=== PATIENT | male | born 1955 | race Caucasian/White ===

== ENCOUNTER 2019-11-17 12:07 | Inpatient (IN) | payer MEDICAID ==
[~2019-11-17] VITALS: Ht 193 cm; Wt 89.0 kg
[2019-11-17] MEDS ORDERED: SODIUM CHLORIDE 0.9% 1000ML BAG (SEPSIS BOLUS) IV ONE (12:45)
[2019-11-17 13:12] LABS: BG BASE EXCESS -6.3 mmol/L (-2.0-2.0); BG CARBOXYHEMOGLOBIN 0.3 % (0.5-1.5); BG DEOXYHEMOGLOBIN 0.7 % (0.0-5.0); BG FRACTION INSPIRED OXYGEN 100; BG HCO3 ACT 16.7 mmol/L (22.0-26.0); BG METHEMOGLOBIN 0.3 % (0.0-1.5); BG OXYGEN SATURATION 99.3 % (92.0-98.5); BG OXYHEMOGLOBIN 98.7 % (94.0-97.0); BG PCO2 25.2 mmHg (35.0-45.0); BG PO2 240.5 mmHg (75.0-100.0); BG SAMPLE SITE RIGHT RADIAL; BG TOTAL HEMOGLOBIN 9.5 g/dL (12.0-18.0); BG VENT MODE MASK - NRB
[2019-11-17 13:29] LABS: BASOPHILS % 0.6 % (0.0-2.0); EOSINOPHILS % 0.8 % (0.0-5.0); HEMATOCRIT. 31.9 % (42.0-52.0); HEMOGLOBIN. 10.3 g/dL (14.0-18.0); LYMPHOCYTES % 20.2 % (20.0-50.0); MEAN CORPUSCULAR HEMOGLOBIN 26.6 pg (28.0-32.0); MEAN CORPUSCULAR VOLUME 82.7 fL (80.0-94.0); MEAN PLATELET VOLUME 8.5 fl (7.4-10.4); MONOCYTES % 10.4 % (2.0-8.0); PLATELET 323 x1000/uL (130-400); RED BLOOD CELL COUNT 3.85 mill/uL (4.7-6.1); RED CELL DISTRIBUTION WIDTH 20.1 % (11.6-14.6)
[2019-11-17] MEDS ORDERED: ACETAMINOPHEN 325MG TABLET PO STA (13:31)
[2019-11-17 13:36] LABS: CHLORIDE 105 mEq/L (98-107); INR 1.4; PROTHROMBIN TIME 14.6 sec (9.6-11.0)
[2019-11-17] MEDS ORDERED: PIPERACILLIN/TAZ 3.375G PREMIX 50 ML IV ONE (13:45)
[2019-11-17] MEDS ORDERED: AZITHROMYCIN 500 MG in DEXT 5% WATER 250 ML IV ONE (13:45)
[2019-11-17] MEDS ORDERED: ENOXAPARIN 40MG/0.4ML SYR SUBCUT SCH (14:45)
[2019-11-17] MEDS ORDERED: CLONIDINE 0.1MG TABLET PO PRN (14:45)
[2019-11-17] MEDS ORDERED: IPRATROPIUM/ALBUTEROL 0.5-3(2.5)MG/3ML NEB HHN PRN (14:45)
[2019-11-17] MEDS ORDERED: AZITHROMYCIN 500 MG in DEXT 5% WATER 250 ML IV SCH (14:45)
[2019-11-17] MEDS ORDERED: ONDANSETRON HCL 4MG/2ML INJ IV PRN (14:45)
[2019-11-17 15:59] LABS: PHOSPHORUS 4.9 mg/dL (2.5-4.9)
[2019-11-17] MEDS: DILTIAZEM HCL 60MG TABLET PO SCH (19:30)
[2019-11-17] MEDS ORDERED: CEFTRIAXONE 1 G PREMIX 50 ML IV SCH (19:30)
[2019-11-17 23:45] VITALS: BP 102/70
[2019-11-18] VITALS (12 sets, daily range): BP systolic 91–139; BP diastolic 50–75
[2019-11-18] MEDS: FUROSEMIDE 40MG/4ML VIAL IV SCH ×3 (01:04→16:42)
[2019-11-18] MEDS ORDERED: CEFEPIME 2,000 MG in DEXT 5% WATER 100 ML IV SCH (02:00)
[2019-11-18] MEDS ORDERED: WARF1TAB85 PO (02:44)
[2019-11-18] MEDS ORDERED: LIP40 MT (02:44)
[2019-11-18] MEDS ORDERED: ATOR10TA MT (02:44)
[2019-11-18] MEDS ORDERED: BENA1TAB21 MT (02:44)
[2019-11-18] MEDS ORDERED: FURO40TA5 PO (02:44)
[2019-11-18] MEDS ORDERED: CARV3.1242 PO (02:44)
[2019-11-18 06:50] LABS: BASOPHILS % 0.7 % (0.0-2.0); EOSINOPHILS % 1.9 % (0.0-5.0); HEMATOCRIT. 26.5 % (42.0-52.0); HEMOGLOBIN. 8.7 g/dL (14.0-18.0); LYMPHOCYTES % 20.2 % (20.0-50.0); MEAN CORPUSCULAR HEMOGLOBIN 26.8 pg (28.0-32.0); MEAN CORPUSCULAR VOLUME 81.5 fL (80.0-94.0); MEAN PLATELET VOLUME 8.3 fl (7.4-10.4); MONOCYTES % 10.9 % (2.0-8.0); NEUTROPHILS % 66.3 % (40.0-76.0); PLATELET 281 x1000/uL (130-400); RED BLOOD CELL COUNT 3.25 mill/uL (4.7-6.1); RED CELL DISTRIBUTION WIDTH 20.4 % (11.6-14.6)
[2019-11-18 07:05] LABS: CHLORIDE 106 mEq/L (98-107); HDL CHOLESTEROL 22 mg/dL (40-59); LDL CHOLESTEROL 67 mg/dL (5-100)
[2019-11-18] MEDS: DILTIAZEM HCL 60MG TABLET PO SCH ×3 (09:19→17:00)
[2019-11-18] MEDS: ENOXAPARIN 40MG/0.4ML SYR SUBCUT SCH (09:20)
[2019-11-18] MEDS ORDERED: CARVEDILOL 6.25 MG TABLET PO NR (10:30)
[2019-11-18] MEDS ORDERED: INFLUENZA VIRUS VACCINE(AFLURIA) 0.5ML SYR IM ONE (12:00)
[2019-11-18] MEDS ORDERED: PNEUMOCOCCAL 23-VAL P-SAC VAC 0.5 ML IM ONE (12:00)
[2019-11-18] MEDS ORDERED: POTASSIUM CHLORIDE 20MEQ/PACKET PO NR (13:15)
[2019-11-18] MEDS: IPRATROPIUM/ALBUTEROL 0.5-3(2.5)MG/3ML NEB HHN SCH ×2 (13:40→21:50)
[2019-11-18 14:01] LABS: HEPATITIS B SURFACE ANTIGEN NEGATIVE
[2019-11-18 14:29] LABS: HEPATITIS A AB IGM NEGATIVE (NEGATIVE)
[2019-11-18] MEDS: AZITHROMYCIN 500 MG in DEXT 5% WATER 250 ML IV SCH (14:45)
[2019-11-18] MEDS: CEFEPIME 2,000 MG in DEXT 5% WATER 100 ML IV SCH (16:42)
[2019-11-18] MEDS ORDERED: CARVEDILOL 6.25 MG TABLET PO SCH (21:00)
[2019-11-18] MEDS: CARVEDILOL 3.125 MG TABLET PO SCH (21:46)
[2019-11-18] MEDS ORDERED: DEXTROSE 50% WATER 50ML SYRINGE IV PRN (23:30)
[2019-11-19] VITALS (9 sets, daily range): BP systolic 91–108; BP diastolic 52–71
[2019-11-19] MEDS: LORAZEPAM 0.5MG TABLET PO PRN (00:10)
[2019-11-19] MEDS: IPRATROPIUM/ALBUTEROL 0.5-3(2.5)MG/3ML NEB HHN SCH ×3 (02:48→14:34)
[2019-11-19 03:01] LABS: BASOPHILS % 1.1 % (0.0-2.0); EOSINOPHILS % 1.2 % (0.0-5.0); HEMATOCRIT. 26.7 % (42.0-52.0); HEMOGLOBIN. 8.9 g/dL (14.0-18.0); LYMPHOCYTES % 19.4 % (20.0-50.0); MEAN CORPUSCULAR HEMOGLOBIN 27.1 pg (28.0-32.0); MEAN CORPUSCULAR VOLUME 81.4 fL (80.0-94.0); MEAN PLATELET VOLUME 8.4 fl (7.4-10.4); MONOCYTES % 10.5 % (2.0-8.0); NEUTROPHILS % 67.8 % (40.0-76.0); PLATELET 267 x1000/uL (130-400); RED BLOOD CELL COUNT 3.29 mill/uL (4.7-6.1); RED CELL DISTRIBUTION WIDTH 20.7 % (11.6-14.6)
[2019-11-19 04:08] LABS: CHLORIDE 103 mEq/L (98-107)
[2019-11-19] MEDS: CEFEPIME 2,000 MG in DEXT 5% WATER 100 ML IV SCH ×2 (05:00→15:23)
[2019-11-19] MEDS: BLOOD SUGAR DIAGNOSTIC STRIP TEST SCH ×2 (07:20→12:20)
[2019-11-19] MEDS: INSULIN LISPRO 100 UNITS/ML SUBCUT SCH ×2 (07:50→12:50)
[2019-11-19] MEDS ORDERED: POTASSIUM CHLORIDE 20MEQ TABLET SR PO NR ×3 (09:00→15:15)
[2019-11-19] MEDS: DILTIAZEM HCL 60MG TABLET PO SCH ×3 (09:00→17:00)
[2019-11-19] MEDS: FUROSEMIDE 40MG/4ML VIAL IV SCH ×2 (10:01→17:29)
[2019-11-19] MEDS: POTASSIUM CHLORIDE 20MEQ TABLET SR PO SCH (10:01)
[2019-11-19] MEDS: ENOXAPARIN 40MG/0.4ML SYR SUBCUT SCH (10:02)
[2019-11-19] MEDS: CARVEDILOL 3.125 MG TABLET PO SCH ×2 (10:03→21:44)
[2019-11-19] MEDS: AZITHROMYCIN 500 MG in DEXT 5% WATER 250 ML IV SCH (15:23)
[2019-11-19] MEDS ORDERED: MAGNESIUM 2 G PREMIX 50 ML IV SCH (17:00)
[2019-11-19] MEDS ORDERED: ALBUTEROL 6.7GM HFA INHALER ORI SCH (18:00)
[2019-11-19] MEDS: ACETAMINOPHEN 325MG TABLET PO PRN (22:07)
[2019-11-19] MEDS: ENOXAPARIN 80MG/0.8ML SYR SUBCUT SCH (22:08)
[2019-11-20] VITALS: BP 95/60
[2019-11-20] MEDS: LORAZEPAM 0.5MG TABLET PO PRN ×2 (00:23→22:23)
[2019-11-20 04:32] VITALS: BP 94/57
[2019-11-20] MEDS: CEFEPIME 2,000 MG in DEXT 5% WATER 100 ML IV SCH ×2 (04:34→15:29)
[2019-11-20] MEDS: CARVEDILOL 3.125 MG TABLET PO SCH ×3 (05:10→22:09)
[2019-11-20 08:00] VITALS: BP 94/66
[2019-11-20] MEDS: DILTIAZEM HCL 60MG TABLET PO SCH ×3 (08:56→16:56)
[2019-11-20] MEDS: ENOXAPARIN 80MG/0.8ML SYR SUBCUT SCH ×2 (08:57→22:08)
[2019-11-20] MEDS: POTASSIUM CHLORIDE 20MEQ TABLET SR PO SCH (08:57)
[2019-11-20] MEDS: FUROSEMIDE 40MG/4ML VIAL IV SCH (10:25)
[2019-11-20 12:00] VITALS: BP 99/69
[2019-11-20] MEDS: AZITHROMYCIN 500 MG in DEXT 5% WATER 250 ML IV SCH (15:28)
[2019-11-20 16:00] VITALS: BP 100/62
[2019-11-20] MEDS: FUROSEMIDE 40MG TABLET PO SCH (17:58)
[2019-11-20 18:09] LABS: BASOPHILS % 0.4 % (0.0-2.0); EOSINOPHILS % 1.2 % (0.0-5.0); HEMATOCRIT. 27.5 % (42.0-52.0); HEMOGLOBIN. 9.1 g/dL (14.0-18.0); LYMPHOCYTES % 17.3 % (20.0-50.0); MEAN CORPUSCULAR HEMOGLOBIN 26.9 pg (28.0-32.0); MEAN CORPUSCULAR VOLUME 81.5 fL (80.0-94.0); MEAN PLATELET VOLUME 8.4 fl (7.4-10.4); MONOCYTES % 12.3 % (2.0-8.0); NEUTROPHILS % 68.8 % (40.0-76.0); PLATELET 259 x1000/uL (130-400); RED BLOOD CELL COUNT 3.38 mill/uL (4.7-6.1); RED CELL DISTRIBUTION WIDTH 20.9 % (11.6-14.6)
[2019-11-20 18:22] LABS: CHLORIDE 99 mEq/L (98-107)
[2019-11-20 20:00] VITALS: BP 111/64
[2019-11-20] MEDS: ALBUTEROL 6.7GM HFA INHALER ORI SCH (22:16)
[2019-11-20 23:01] LABS: CLARITY URINE CLEAR (CLEAR); COLOR URINE YELLOW (YELLOW); KETONES URINE NEGATIVE (NEGATIVE); LEUKOCYTE ESTERASE URINE NEGATIVE (NEGATIVE); NITRITE URINE NEGATIVE (NEGATIVE); OCCULT BLOOD URINE NEGATIVE (NEGATIVE); PH URINE 6.5 (4.5-8.0); PROTEIN URINE NEGATIVE (NEGATIVE); SPECIFIC GRAVITY URINE 1.007 (1.005-1.030); UROBILINOGEN URINE 0.2 E.U./dL (0.2-1.0)
[2019-11-21] VITALS: BP 102/61
[2019-11-21] MEDS: CEFEPIME 2,000 MG in DEXT 5% WATER 100 ML IV SCH ×2 (01:32→22:05)
[2019-11-21 03:50] VITALS: BP 98/62
[2019-11-21] MEDS: CARVEDILOL 3.125 MG TABLET PO SCH ×3 (05:36→22:06)
[2019-11-21] MEDS: ALBUTEROL 6.7GM HFA INHALER ORI SCH ×4 (05:59→18:00)
[2019-11-21 06:05] LABS: BASOPHILS % 0.4 % (0.0-2.0); EOSINOPHILS % 1.1 % (0.0-5.0); HEMATOCRIT. 26.4 % (42.0-52.0); HEMOGLOBIN. 8.7 g/dL (14.0-18.0); LYMPHOCYTES % 19.4 % (20.0-50.0); MEAN CORPUSCULAR HEMOGLOBIN 26.9 pg (28.0-32.0); MEAN PLATELET VOLUME 8.1 fl (7.4-10.4); MONOCYTES % 11.9 % (2.0-8.0); NEUTROPHILS % 67.2 % (40.0-76.0); PLATELET 250 x1000/uL (130-400); RED BLOOD CELL COUNT 3.22 mill/uL (4.7-6.1); RED CELL DISTRIBUTION WIDTH 20.5 % (11.6-14.6)
[2019-11-21 06:10] LABS: CHLORIDE 99 mEq/L (98-107)
[2019-11-21] MEDS: FUROSEMIDE 40MG TABLET PO SCH ×2 (06:17→17:15)
[2019-11-21 06:19] LABS: CREATINE KINASE 65 IU/L (39-308)
[2019-11-21] MEDS: BLOOD SUGAR DIAGNOSTIC STRIP TEST SCH ×4 (06:30→21:00)
[2019-11-21] MEDS ORDERED: DEXTROSE 50% WATER 50ML SYRINGE IV PRN (06:30)
[2019-11-21] MEDS: INSULIN LISPRO 100 UNITS/ML SUBCUT SCH ×4 (07:50→22:03)
[2019-11-21 08:00] VITALS: BP 92/61
[2019-11-21] MEDS ORDERED: POTASSIUM CHLORIDE 20MEQ TABLET SR PO SCH (08:45)
[2019-11-21] MEDS: DILTIAZEM HCL 60MG TABLET PO SCH ×3 (09:00→17:00)
[2019-11-21] MEDS: POTASSIUM CHLORIDE 20MEQ TABLET SR PO SCH (09:11)
[2019-11-21] MEDS: ENOXAPARIN 80MG/0.8ML SYR SUBCUT SCH ×2 (09:21→22:05)
[2019-11-21 12:00] VITALS: BP 93/66
[2019-11-21] MEDS: AZITHROMYCIN 500 MG in DEXT 5% WATER 250 ML IV SCH (15:38)
[2019-11-21 16:00] VITALS: BP 89/64
[2019-11-21] MEDS ORDERED: MORPHINE SULFATE 2 MG/ML CPJ (NOT FOR IM USE) IV PRN ×2 (17:15→17:45)
[2019-11-21 20:00] VITALS: BP 96/68
[2019-11-21] MEDS ORDERED: IOHEXOL-300 100 ML BOTTLE ONE (21:08)
[2019-11-21] MEDS: LORAZEPAM 0.5MG TABLET PO PRN (22:07)
[2019-11-22] VITALS: BP 95/63
[2019-11-22] MEDS: DIPHENHYDRAMINE 50MG/ML VIAL IV PRN (01:25)
[2019-11-22 04:00] VITALS: BP 99/65
[2019-11-22] MEDS: CEFEPIME 2,000 MG in DEXT 5% WATER 100 ML IV SCH ×2 (04:24→15:31)
[2019-11-22] MEDS: ALBUTEROL 6.7GM HFA INHALER ORI SCH ×2 (06:00)
[2019-11-22] MEDS: CARVEDILOL 3.125 MG TABLET PO SCH ×3 (06:11→22:00)
[2019-11-22] MEDS: FUROSEMIDE 40MG TABLET PO SCH ×2 (06:17→18:08)
[2019-11-22 06:50] LABS: CHLORIDE 96 mEq/L (98-107)
[2019-11-22 07:35] LABS: BASOPHILS % 0.6 % (0.0-2.0); EOSINOPHILS % 0.6 % (0.0-5.0); HEMATOCRIT. 28.5 % (42.0-52.0); LYMPHOCYTES % 21.2 % (20.0-50.0); MEAN CORPUSCULAR HEMOGLOBIN 26.3 pg (28.0-32.0); MEAN CORPUSCULAR VOLUME 82.7 fL (80.0-94.0); MEAN PLATELET VOLUME 9.1 fl (7.4-10.4); MONOCYTES % 9.9 % (2.0-8.0); NEUTROPHILS % 67.7 % (40.0-76.0); PLATELET 270 x1000/uL (130-400); RED BLOOD CELL COUNT 3.44 mill/uL (4.7-6.1); RED CELL DISTRIBUTION WIDTH 20.5 % (11.6-14.6)
[2019-11-22] MEDS: BLOOD SUGAR DIAGNOSTIC STRIP TEST SCH ×4 (07:36→21:00)
[2019-11-22] MEDS: INSULIN LISPRO 100 UNITS/ML SUBCUT SCH ×4 (07:50→21:00)
[2019-11-22 08:20] VITALS: BP 94/61
[2019-11-22] MEDS: DILTIAZEM HCL 60MG TABLET PO SCH ×3 (08:54→17:00)
[2019-11-22] MEDS: ENOXAPARIN 80MG/0.8ML SYR SUBCUT SCH ×2 (09:09→22:19)
[2019-11-22] MEDS: POTASSIUM CHLORIDE 20MEQ TABLET SR PO SCH (09:09)
[2019-11-22 09:16] LABS: COVID-19 PCR RNA NOT DETECTED
[2019-11-22 09:17] LABS: COVID-19 PCR RNA NOT DETECTED
[2019-11-22 12:21] VITALS: BP 91/54
[2019-11-22] MEDS: AZITHROMYCIN 500 MG in DEXT 5% WATER 250 ML IV SCH (14:47)
[2019-11-22 16:10] VITALS: BP 98/62
[2019-11-22] MEDS: WARFARIN SODIUM 3MG TABLET PO SCH (18:11)
[2019-11-22 20:00] VITALS: BP 91/62
[2019-11-22] MEDS: ACETAMINOPHEN 325MG TABLET PO PRN (22:15)
[2019-11-22] MEDS: LORAZEPAM 0.5MG TABLET PO PRN (22:18)
[2019-11-23] VITALS: BP 114/71
[2019-11-23] MEDS: CEFEPIME 2,000 MG in DEXT 5% WATER 100 ML IV SCH ×2 (02:55→16:55)
[2019-11-23 04:00] VITALS: BP 99/63
[2019-11-23] MEDS: CARVEDILOL 3.125 MG TABLET PO SCH (05:49)
[2019-11-23] MEDS: ALBUTEROL 6.7GM HFA INHALER ORI SCH ×3 (05:50→12:38)
[2019-11-23] MEDS: FUROSEMIDE 40MG TABLET PO SCH ×2 (06:45→06:50)
[2019-11-23 06:46] LABS: INR 1.3; PROTHROMBIN TIME 14.1 sec (9.6-11.0)
[2019-11-23] MEDS: BLOOD SUGAR DIAGNOSTIC STRIP TEST SCH ×4 (06:46→21:00)
[2019-11-23 06:48] LABS: BASOPHILS % 0.4 % (0.0-2.0); EOSINOPHILS % 0.7 % (0.0-5.0); HEMATOCRIT. 25.1 % (42.0-52.0); HEMOGLOBIN. 8.2 g/dL (14.0-18.0); LYMPHOCYTES % 15.9 % (20.0-50.0); MEAN CORPUSCULAR HEMOGLOBIN 26.6 pg (28.0-32.0); MEAN CORPUSCULAR VOLUME 81.2 fL (80.0-94.0); MEAN PLATELET VOLUME 8.8 fl (7.4-10.4); MONOCYTES % 11.7 % (2.0-8.0); NEUTROPHILS % 71.3 % (40.0-76.0); PLATELET 228 x1000/uL (130-400); RED BLOOD CELL COUNT 3.09 mill/uL (4.7-6.1); RED CELL DISTRIBUTION WIDTH 21.2 % (11.6-14.6)
[2019-11-23 06:50] LABS: CHLORIDE 98 mEq/L (98-107)
[2019-11-23 07:21] LABS: CLARITY URINE CLEAR (CLEAR); COLOR URINE YELLOW (YELLOW); KETONES URINE NEGATIVE (NEGATIVE); LEUKOCYTE ESTERASE URINE NEGATIVE (NEGATIVE); NITRITE URINE NEGATIVE (NEGATIVE); OCCULT BLOOD URINE NEGATIVE (NEGATIVE); PROTEIN URINE 1+ (NEGATIVE); SPECIFIC GRAVITY URINE 1.016 (1.005-1.030); UROBILINOGEN URINE 0.2 E.U./dL (0.2-1.0)
[2019-11-23] MEDS: INSULIN LISPRO 100 UNITS/ML SUBCUT SCH ×4 (07:50→21:00)
[2019-11-23 08:00] VITALS: BP 98/53
[2019-11-23 08:46] VITALS: BP 98/53
[2019-11-23] MEDS: DILTIAZEM HCL 60MG TABLET PO SCH (09:00)
[2019-11-23] MEDS: ENOXAPARIN 80MG/0.8ML SYR SUBCUT SCH ×2 (10:17→21:39)
[2019-11-23] MEDS: POTASSIUM CHLORIDE 20MEQ TABLET SR PO SCH (10:17)
[2019-11-23 12:22] VITALS: BP 81/58
[2019-11-23] MEDS: SODIUM CHLORIDE 0.45% 1,000 ML IV SCH (12:41)
[2019-11-23] MEDS: AZITHROMYCIN 500 MG in DEXT 5% WATER 250 ML IV SCH (15:33)
[2019-11-23] MEDS: IPRATROPIUM/ALBUTEROL 0.5-3(2.5)MG/3ML NEB HHN SCH ×2 (15:37→21:00)
[2019-11-23 16:20] VITALS: BP 88/50
[2019-11-23] MEDS: WARFARIN SODIUM 3MG TABLET PO SCH (17:01)
[2019-11-23] MEDS: ACETAMINOPHEN 325MG TABLET PO PRN (21:39)
[2019-11-24] VITALS (7 sets, daily range): BP systolic 91–108; BP diastolic 57–66
[2019-11-24] MEDS: IPRATROPIUM/ALBUTEROL 0.5-3(2.5)MG/3ML NEB HHN SCH ×6 (00:36→21:33)
[2019-11-24] MEDS ORDERED: LORAZEPAM 0.5MG TABLET PO PRN (01:30)
[2019-11-24 05:59] LABS: BASOPHILS % 0.5 % (0.0-2.0); EOSINOPHILS % 0.3 % (0.0-5.0); HEMATOCRIT. 26.6 % (42.0-52.0); HEMOGLOBIN. 8.6 g/dL (14.0-18.0); LYMPHOCYTES % 18.2 % (20.0-50.0); MEAN CORPUSCULAR HEMOGLOBIN 26.4 pg (28.0-32.0); MEAN CORPUSCULAR VOLUME 81.8 fL (80.0-94.0); MEAN PLATELET VOLUME 9.3 fl (7.4-10.4); MONOCYTES % 10.9 % (2.0-8.0); NEUTROPHILS % 70.1 % (40.0-76.0); PLATELET 239 x1000/uL (130-400); RED BLOOD CELL COUNT 3.25 mill/uL (4.7-6.1); RED CELL DISTRIBUTION WIDTH 20.4 % (11.6-14.6)
[2019-11-24 06:02] LABS: CHLORIDE 95 mEq/L (98-107)
[2019-11-24] MEDS: SODIUM CHLORIDE 0.45% 1,000 ML IV SCH (06:05)
[2019-11-24 06:13] LABS: INR 1.4; PROTHROMBIN TIME 15.2 sec (9.6-11.0)
[2019-11-24] MEDS: BLOOD SUGAR DIAGNOSTIC STRIP TEST SCH ×4 (06:47→20:17)
[2019-11-24] MEDS: INSULIN LISPRO 100 UNITS/ML SUBCUT SCH ×4 (06:47→20:17)
[2019-11-24] MEDS: ENOXAPARIN 80MG/0.8ML SYR SUBCUT SCH ×2 (08:15→20:25)
[2019-11-24] MEDS: POTASSIUM CHLORIDE 20MEQ TABLET SR PO SCH (08:15)
[2019-11-24] MEDS ORDERED: POTASSIUM CHLORIDE 20MEQ TABLET SR PO NR (09:30)
[2019-11-24] MEDS: DIPHENHYDRAMINE 50MG/ML VIAL IV PRN ×2 (12:37→23:59)
[2019-11-24] MEDS: WARFARIN SODIUM 3MG TABLET PO SCH (17:41)
[2019-11-24] MEDS: CARVEDILOL 3.125 MG TABLET PO SCH (20:20)
[2019-11-25] VITALS (7 sets, daily range): BP systolic 90–108; BP diastolic 58–81
[2019-11-25] MEDS: SODIUM CHLORIDE 0.45% 1,000 ML IV SCH (01:07)
[2019-11-25] MEDS: BLOOD SUGAR DIAGNOSTIC STRIP TEST SCH ×4 (06:18→21:12)
[2019-11-25 06:56] LABS: INR 1.6; PROTHROMBIN TIME 16.7 sec (9.6-11.0)
[2019-11-25 07:05] LABS: BASOPHILS % 0.6 % (0.0-2.0); EOSINOPHILS % 0.4 % (0.0-5.0); HEMATOCRIT. 26.5 % (42.0-52.0); HEMOGLOBIN. 8.3 g/dL (14.0-18.0); LYMPHOCYTES % 15.2 % (20.0-50.0); MEAN CORPUSCULAR VOLUME 82.5 fL (80.0-94.0); MEAN PLATELET VOLUME 9.4 fl (7.4-10.4); NEUTROPHILS % 72.8 % (40.0-76.0); PLATELET 251 x1000/uL (130-400); RED BLOOD CELL COUNT 3.21 mill/uL (4.7-6.1); RED CELL DISTRIBUTION WIDTH 20.6 % (11.6-14.6)
[2019-11-25] MEDS: INSULIN LISPRO 100 UNITS/ML SUBCUT SCH ×4 (07:29→21:00)
[2019-11-25] MEDS: POTASSIUM CHLORIDE 20MEQ TABLET SR PO SCH (08:52)
[2019-11-25] MEDS: ENOXAPARIN 80MG/0.8ML SYR SUBCUT SCH ×2 (08:53→21:17)
[2019-11-25] MEDS: CARVEDILOL 3.125 MG TABLET PO SCH ×2 (08:53→21:17)
[2019-11-25] MEDS: WARFARIN SODIUM 3MG TABLET PO SCH (17:36)
[2019-11-25] MEDS: IPRATROPIUM/ALBUTEROL 0.5-3(2.5)MG/3ML NEB HHN SCH (20:36)
[2019-11-26] VITALS: BP 98/62
[2019-11-26 00:03] VITALS: BP 98/62
[2019-11-26] MEDS: IPRATROPIUM/ALBUTEROL 0.5-3(2.5)MG/3ML NEB HHN SCH (02:46)
[2019-11-26 04:30] VITALS: BP 101/58
[2019-11-26] MEDS: BLOOD SUGAR DIAGNOSTIC STRIP TEST SCH (06:22)
[2019-11-26 06:26] LABS: INR 1.6; PROTHROMBIN TIME 17.3 sec (9.6-11.0)
[2019-11-26 06:59] LABS: BASOPHILS % 0.4 % (0.0-2.0); EOSINOPHILS % 0.5 % (0.0-5.0); HEMATOCRIT. 25.3 % (42.0-52.0); HEMOGLOBIN. 8.1 g/dL (14.0-18.0); LYMPHOCYTES % 13.5 % (20.0-50.0); MEAN CORPUSCULAR HEMOGLOBIN 26.5 pg (28.0-32.0); MEAN CORPUSCULAR VOLUME 82.6 fL (80.0-94.0); MEAN PLATELET VOLUME 9.5 fl (7.4-10.4); MONOCYTES % 9.9 % (2.0-8.0); NEUTROPHILS % 75.7 % (40.0-76.0); PLATELET 245 x1000/uL (130-400); RED BLOOD CELL COUNT 3.06 mill/uL (4.7-6.1); RED CELL DISTRIBUTION WIDTH 20.6 % (11.6-14.6)
[2019-11-26 08:00] VITALS: BP 95/59
[2019-11-26] MEDS ORDERED: FUROSEMIDE 40MG TABLET PO SCH (09:00)
[2019-11-26] MEDS: ENOXAPARIN 80MG/0.8ML SYR SUBCUT SCH (09:13)
[2019-11-26] MEDS: POTASSIUM CHLORIDE 20MEQ TABLET SR PO SCH (09:13)
== END 2019-11-26 11:47 | DRG 720 ==
LOC: EEVIPCON 12:07 → ER 12:07 → 3WST 14:17 → EDBEDREQSVC 14:19 → EDBEDREQ 14:19 → EDBEDREQSVC 15:59 → EDBEDREQ 16:21 → ENRESERV 22:30 → 6WST 11-19 06:12
PROVIDERS: ADMIT Internal Medicine; ATTEND Internal Medicine
DX: A41.9 Sepsis, unspecified organism (principal); J96.00 Acute respiratory failure, unspecified whether with hypoxia or hypercapnia; I47.2 Ventricular tachycardia; I50.23 Acute on chronic systolic (congestive) heart failure; J18.9 Pneumonia, unspecified organism; E44.0 Moderate protein-calorie malnutrition; E87.2 Acidosis; I11.0 Hypertensive heart disease with heart failure; D63.8 Anemia in other chronic diseases classified elsewhere; E11.9 Type 2 diabetes mellitus without complications; E87.1 Hypo-osmolality and hyponatremia; I42.0 Dilated cardiomyopathy; I42.8 Other cardiomyopathies; I48.91 Unspecified atrial fibrillation; E78.5 Hyperlipidemia, unspecified; Z95.810 Presence of automatic (implantable) cardiac defibrillator; Z93.3 Colostomy status; B34.9 Viral infection, unspecified; E03.9 Hypothyroidism, unspecified; E87.6 Hypokalemia; Z85.048 Personal history of other malignant neoplasm of rectum, rectosigmoid junction, and anus; Z79.01 Long term (current) use of anticoagulants; I48.19 Other persistent atrial fibrillation; I44.7 Left bundle-branch block, unspecified; Z87.01 Personal history of pneumonia (recurrent); Z85.038 Personal history of other malignant neoplasm of large intestine; Z68.24 Body mass index [BMI] 24.0-24.9, adult
CPT/HCPCS: 36415; 36600; 71045; 74177; 76700; 80048; 80053; 80061; 80076; 81003; 82105; 82140; 82248; 82375; 82378; 82550; 82805; 82962; 83036; 83605; 83735; 83880; 84100; 84145; 84443; 84484; 85025; 86705; 86709; 86803; 87340; 87420; 87804; 93005; 93306; 93970; 94640; 96365; 97162; 99291; J0456; J0692; J1200; J1650; J1815; J1940; J2270; J2405; J2543; J3475; J7030; J7060; Q9967